=== PATIENT | female | born 1960 | race Caucasian/White ===

== ENCOUNTER 2017-01-26 15:25 | Emergency (ER) | payer SELFPAY ==
[2017-01-26] MEDS ORDERED: CLONIDINE HCL 0.2 MG TABLET PO ONE (16:32)
--- NOTE | 2017-01-26 16:40 | ER Document Report ---
ED Blood Pressure Problem - General Chief Complaint: High Blood Pressure Stated Complaint: BLOOD PRESSURE PROBLEMS Time Seen by Provider: 01/26/17 16:21 Mode of Arrival: Ambulatory Information source: Patient TRAVEL OUTSIDE OF THE [place] IN LAST 30 DAYS: No - HPI Patient complains to provider of: High blood pressure Quality of pain: No pain Pt currently taking medication for problem: No Associated symptoms: None Similar symptoms previously: Yes Recently seen / treated by doctor: Yes Notes: Patient is a 56-year-old female who was sent and surrounded by Social Security disability physician for evaluation of high blood pressure, patient reports a history of high blood pressure but has not seen a doctor been on medication for at least a year, she went to his physician today to get evaluated for Social Security disability and when he noted her blood pressure be high he sent her to the ER for evaluation, patient denies any chest pain or shortness of breath, no headache or blurred vision, no nausea or vomiting, no pain anywhere - Related Data Allergies/Adverse Reactions: No Known Allergies Allergy (Verified 01/26/17 15:29) Past Medical History - General Information source: Patient - Social History Smoking Status: Current Every Day Smoker Family History: Reviewed & Not Pertinent Patient has suicidal ideation: No Patient has homicidal ideation: No Renal/ Medical History: Denies: Hx Peritoneal Dialysis Review of Systems - Review of Systems Constitutional: No symptoms reported EENT: No symptoms reported Cardiovascular: No symptoms reported Respiratory: No symptoms reported Gastrointestinal: No symptoms reported Genitourinary: No symptoms reported Female Genitourinary: No symptoms reported Musculoskeletal: No symptoms reported Skin: No symptoms reported Hematologic/Lymphatic: No symptoms reported Neurological/Psychological: No symptoms reported -: Yes All other systems reviewed and negative Physical Exam - Vital signs Vitals: Temp Pulse Resp BP Pulse Ox 98.4 F 127 H 19 225/105 H 97 01/26/17 15:29 01/26/17 15:29 01/26/17 15:29 01/26/17 15:29 01/26/17 15:29 Interpretation: Hypertensive, Tachycardic - General General appearance: Appears well, Alert - HEENT Head: Normocephalic, Atraumatic Eyes: Normal Conjunctiva: Normal Extraocular movements intact: Yes Eyelashes: Normal Pupils: PERRL Ears: Normal External canal: Normal Nasal: Normal Mouth/Lips: Normal Pharynx: Normal Neck: Normal - Respiratory Respiratory status: No respiratory distress Chest status: Nontender Breath sounds: Normal Chest palpation: Normal - Cardiovascular Rhythm: Regular Heart sounds: Normal auscultation Murmur: No - Abdominal Inspection: Normal Distension: No distension Bowel sounds: Normal Tenderness: Nontender Organomegaly: No organomegaly - Back Back: Normal, Nontender - Extremities General upper extremity: Normal inspection, Nontender, Normal color, Normal ROM , Normal temperature General lower extremity: Normal inspection, Nontender, Normal color, Normal ROM , Normal temperature, Normal weight bearing. No: Declan's sign - Neurological Neuro grossly intact: Yes Cognition: Normal Orientation: AAOx4 [place] Coma Scale Eye Opening: Spontaneous [place] Coma Scale Verbal: Oriented [place] Coma Scale Motor: Obeys Commands [place] Coma Scale Total: 15 Speech: Normal Motor strength normal: LUE, RUE, LLE, RLE Sensory: Normal - Psychological Associated symptoms: Normal affect, Normal mood - Skin Skin Temperature: Warm Skin Moisture: Dry Skin Color: Normal Course - Re-evaluation Re-evalutation: 01/26/17 16:36 Patient with chronically elevated blood pressure who has been off her medications and has not seen a physician in over a year, she denies any complaints related to her high blood pressure, she came to the emergency room on the advice of the physician she was seen for Social Security disability evaluation, I offered to perform some basic lab work and imaging to ensure no secondary organ damage from chronically elevated high blood pressure, however since patient has no symptoms at this time she requested that I just give her prescriptions for her medications that she used to take over a year ago, she was given a dose of clonidine in the emergency room prescriptions for other medication, she was advised to follow-up at the [facility] or a primary care provider within the next week or return if symptoms worsen, patient acknowledges understanding and agreement with this plan - Vital Signs Vital signs: Temp Pulse Resp BP Pulse Ox 98.4 F 127 H 19 225/105 H 97 01/26/17 15:29 01/26/17 15:29 01/26/17 15:29 01/26/17 15:29 01/26/17 15:29 Discharge - Discharge Clinical Impression: Hypertension Qualifiers: Hypertension type: essential hypertension Qualified Code(s): I10 - Essential ( primary) hypertension Condition: Stable Disposition: HOME, SELF-CARE Instructions: High Blood Pressure, Requiring Treatment ([facility]) Additional Instructions: Follow up with your primary care provider in one to 2 days. Return to the emergency room immediately if symptoms worsen or any additional concerns. Prescriptions: Alprazolam 0.25 mg PO TID #60 tablet Amlodipine Besylate 10 mg PO DAILY #30 tab Clonidine HCl 0.3 mg PO TID #90 tablet Fluoxetine HCl 20 mg PO DAILY #30 capsule Lisinopril 10 mg PO BID #60 tablet Forms: Smoking Cessation Education, Elevated Blood Pressure
[2017-01-26 16:42] VITALS: BP 218/104
== END 2017-01-26 16:51 | disposition home or self-care (01) ==
LOC: ER 15:25
DX: I10 Essential (primary) hypertension (principal); R00.0 Tachycardia, unspecified; F17.200 Nicotine dependence, unspecified, uncomplicated
CPT/HCPCS: 99283